=== PATIENT | female | born 1990 | race Caucasian/White ===

== ENCOUNTER 2019-02-09 21:30 | Emergency (ER) | payer MEDICAID ==
[2019-02-09 21:38] VITALS: BP 144/83
--- NOTE | 2019-02-09 22:01 | ED Physician Documentation ---
History of Present Illness - Stated complaint Stated Complaint: BK PX/TRUNK PX - Chief complaint Chief Complaint: Trauma Ch/Bk - Additonal information Additional information: This is a 28-year-old female with a history of previous lumbar compression fracture which was treated nonoperatively after a fall from horse, presents with back spasm. Patient was pushing a bin full of some heavy dog food today and when she stood up and turned she had pain in her lower back on the left side. She feels like the muscle of her upper gluteus and lower back are spasming. Pain is currently severe, worse with movement. She denies pain in the midline. She denies any numbness or tingling in her leg, no weakness. No bowel or bladder symptoms. Review of Systems Constitutional: denies: Fever Cardiac: denies: Chest pain / pressure GI: denies: Abdominal Pain Musculoskeletal: reports: Back pain PD PAST MEDICAL HISTORY - Past Medical History Musculoskeletal: Other (Lumbar compression fracture) - Past Surgical History Past Surgical History: No - Present Medications Home Medications: Ambulatory Orders Medication Instructions Recorded Confirmed Methocarbamol [Robaxin] 500 mg PO TID PRN #15 tablet 02/09/19 - Allergies Allergies/Adverse Reactions: Allergies Allergy/AdvReac Type Severity Reaction Status Date / Time ibuprofen Allergy Dizziness Verified 02/09/19 21:38 - Living Situation Living Situation: reports: With family - Social History Does the pt have substance abuse?: No - Family History Family history: reports: Non contributory PD ED PE NORMAL - Vitals Vital signs reviewed: Yes - General General: Alert and oriented X 3 - HEENT HEENT: PERRL - Cardiac Cardiac: RRR (Normal rate in 80s on my exam) - Respiratory Respiratory: Clear bilaterally - Abdomen Abdomen: Soft, Non distended - Back Back: Other (No deformity. No ecchymosis or skin changes. No midline tenderness in the TL or S spine. Patient has some tenderness in the left lower paraspinous muscle and left upper gluteal region. 5 out of 5 strength ankle dorsiflexion and plantarflexion. Sensation to light touch intact over the bilateral lower extremities) - Derm Derm: Warm and dry - Extremities Extremities: No deformity - Neuro Neuro: Alert and oriented X 3 - Psych Psych: Normal mood, Normal affect Results - Vitals Vitals: Vital Signs - 24 hr 02/09/19 21:35 Temperature 36.6 C Heart Rate 112 H Respiratory 18 Rate Blood Pressure 144/83 H O2 Saturation 100 Oxygen O2 Source Room air Procedures - General procedure General procedure: Trigger point injection: After discussing the risks of this procedure, patient verbally consented. The 3 areas of maximal tenderness were palpated, and cleaned with alcohol, and afterwards they were injected with 0.5 cc of lidocaine using a 27-gauge needle. Care was made to keep the needle superficial under the muscle, and the syringe was pulled back prior to injecting lidocaine to ensure it was not in the vessel. Patient felt a little bit lightheaded upon receiving the injections, she was laid down and she felt better within a minute or two. She otherwise tolerated the procedure well with no immediate complications. PD MEDICAL DECISION MAKING - ED course Complexity details: considered differential (Strain, sprain, fracture, sciatica, disc herniation, spinal cord compression) ED course: Patient presents with spasm and discomfort of her left lower paraspinous muscles and upper gluteal region after a twisting motion today. She is neurologically intact, has no midline tenderness, no impact to the back, no bowel or bladder symptoms, no red flags that would necessitate imaging at this time. Her pain is truly located in the muscles And she appears to have a strain with some back spasm. She was given trigger point injections, Tylenol, and Robaxin. Afterwards she felt somewhat improved, but upon getting up and walking she had increased pain, so she was given cyclobenzaprine. She had improvement with this medication. I reviewed return precautions, instructed her to follow-up with her primary care provider, and prescribed her a small number of Robaxin with instructions on its use. I also discussed typical supportive care for back pain. Patient agreed and was discharged home in the care of her mother. Departure - Departure Disposition: 01 Home, Self Care Clinical Impression: Back strain Qualifiers: Encounter type: initial encounter Qualified Code(s): S39.012A - Strain of muscle, fascia and tendon of lower back, initial encounter Condition: Good Instructions: ED Spasm Back No Trauma Follow-Up: He Dyer ARNP [Primary Care Provider] - Within 1 week (For follow up if having continued symptoms) Prescriptions: Methocarbamol [Robaxin] 500 mg PO TID PRN #15 tablet PRN Reason: Pain Comments: You were seen today for back pain. This appears to be a strain of your left back. Please take Tylenol, rest your back, ice or heat the area of discomfort, and avoid twisting, straining, or lifting until your back feels better. Please follow-up with your primary care provider unless your symptoms completely resolve. If you have any worsening, or other concerning symptoms such as numbness or weakness please return to the emergency department. Discharge Date/Time: 02/10/19 00:09
[2019-02-09] MEDS ORDERED: METHOCARBAMOL 500 MG TABLET PO STA (22:09)
[2019-02-09] MEDS ORDERED: ACETAMINOPHEN 325 MG TABLET PO STA (22:09)
[2019-02-09] MEDS ORDERED: LIDOCAINE 1% 2 ML VIAL SUBQ STA (22:10)
[2019-02-09] MEDS ORDERED: CYCLOBENZAPRINE 10 MG TABLET PO STA (23:53)
== END 2019-02-10 00:09 | disposition home or self-care (01) ==
LOC: ED 21:30
DX: S39.012A Strain of muscle, fascia and tendon of lower back, initial encounter (principal); X50.1XXA Overexertion from prolonged static or awkward postures, initial encounter; Y93.89 Activity, other specified; M62.830 Muscle spasm of back; Z87.81 Personal history of (healed) traumatic fracture
CPT/HCPCS: 20552; 99282; 99283; A9270

== ENCOUNTER 2019-07-05 19:27 | Emergency (ER) | payer MEDICAID ==
[2019-07-05] MEDS ORDERED: SODIUM CHLORIDE 0.9% 1,000 ML IV ONE (19:55)
[2019-07-05] MEDS ORDERED: BENZONATATE 100 MG CAPSULE PO STA (19:55)
--- NOTE | 2019-07-05 20:03 | ED Physician Documentation ---
PD HPI CHEST PAIN - Stated complaint Stated Complaint: COUGH/CP/SOA - Chief complaint Chief Complaint: Resp - History obtained from History obtained from: Patient - History of Present Illness Timing - onset: Other (About 12 days ago became sick with cough, runny nose, body aches, fevers and chills. She had been exposed to the influenza virus and presumed that was what it was. She was slowly getting better but over the last 3 days has developed sharp left-sided chest pain that hurts worse with cough and deep breathing. She is coughing up a clear to white mucus. She denies shortness of breath. No fevers now. No pedal edema or calf pain.) Review of Systems Constitutional: reports: Fatigue. denies: Fever, Chills Nose: reports: Rhinorrhea / runny nose Throat: denies: Sore throat Cardiac: reports: Chest pain / pressure. denies: Palpitations, Pedal edema, Calf pain Respiratory: reports: Cough. denies: Dyspnea, Hemoptysis, Wheezing PD PAST MEDICAL HISTORY - Past Medical History Past Medical History: Yes Musculoskeletal: Other Other Past Medical History: Compound FX L4 & L5, & cocyx from horseback riding fall. - Past Surgical History Past Surgical History: No - Present Medications Home Medications: Ambulatory Orders Medication Instructions Recorded Confirmed Benzonatate [Tessalon Perle] 100 - 200 mg PO TID PRN #30 capsule 07/05/19 guaiFENesin/CODEINE [Robitussin AC] 5 - 10 ml PO Q6H PRN #120 ml 07/05/19 - Allergies Allergies/Adverse Reactions: Allergies Allergy/AdvReac Type Severity Reaction Status Date / Time ibuprofen Allergy Dizziness Verified 07/05/19 19:31 - Social History Does the pt smoke?: No Smoking Status: Never smoker Does the pt drink ETOH?: Yes Does the pt have substance abuse?: No - Immunizations Immunizations are current?: Yes - POLST Patient has POLST: No PD ED PE NORMAL - Vitals Vital signs reviewed: Yes - General General: Alert and oriented X 3, No acute distress, Other (On my examination her heart rate is closer to 1 10-1 20) - HEENT HEENT: PERRL, EOMI, Ears normal, Pharynx benign - Neck Neck: Supple, no meningeal sign, No bony TTP - Cardiac Cardiac: RRR, No murmur - Respiratory Respiratory: No respiratory distress, Clear bilaterally - Abdomen Abdomen: Non tender - Back Back: No CVA TTP, No spinal TTP - Derm Derm: Normal color, Warm and dry - Extremities Extremities: No edema, No calf tenderness / cord - Neuro Neuro: Alert and oriented X 3, Normal speech Results - Vitals Vitals: Vital Signs - 24 hr 07/05/19 07/05/19 07/05/19 19:31 20:17 21:18 Temperature 36.5 C 36.8 C Heart Rate 87 79 88 Respiratory 16 18 16 Rate Blood Pressure 140/90 H 122/80 129/92 H O2 Saturation 100 100 100 Oxygen O2 Source Room air - EKG (time done) 1941 Rate: Rate (enter#) (98) Rhythm: NSR [place]: Normal Intervals: Normal [place] QRS: Normal Ischemia: Non specific changes Computer interpretation: Agree with computer - Labs Labs: Laboratory Tests 07/05/19 07/05/19 07/05/19 20:14 20:14 20:14 WBC 8.7 RBC 4.75 Hgb 14.2 Hct 41.8 MCV 88.0 MCH 29.9 MCHC 34.0 RDW 11.6 L Plt Count 375 MPV 8.8 Neut # (Auto) 3.5 Lymph # (Auto) 3.9 H [place] # (Auto) 1.3 H Eos # (Auto) 0.0 Baso # (Auto) 0.0 Absolute Nucleated RBC 0.00 Nucleated RBC % 0.0 D-Dimer 369.4 H Sodium 140 Potassium 3.8 Chloride 108 Carbon Dioxide 25 Anion Gap 7.0 BUN 8 Creatinine 0.6 Estimated GFR (MDRD) 119 Glucose 98 Calcium 9.5 Total Bilirubin 0.9 AST 19 ALT 17 Alkaline Phosphatase 56 Total Protein 7.6 Albumin 4.4 Globulin 3.2 Albumin/Globulin Ratio 1.4 Lipase 57 H - Rads (name of study) 2v CXR Radiology: EMP read contemporaneously (normal) CTA chest Radiology: EMP read contemporaneously (Normal) PD MEDICAL DECISION MAKING - ED course ED course: 29-year-old woman with a flulike illness preceding a bad cough and now left- sided chest pain. She was tachycardic and d-dimer was done with positive results necessitating CT angiography of the chest which was negative. There is no evidence of pneumonia. Lab work was unremarkable. Feeling better after Tessalon and IV fluids. Departure - Departure Disposition: 01 Home, Self Care Clinical Impression: Chest pain Qualifiers: Chest pain type: pleurodynia Qualified Code(s): R07.81 - Pleurodynia Upper respiratory tract infection Qualifiers: URI type: unspecified URI Qualified Code(s): J06.9 - Acute upper respiratory infection, unspecified Condition: Good Record reviewed to determine appropriate education?: Yes Instructions: ED Chest Pain NonCardiac Prescriptions: Benzonatate [Tessalon Perle] 100 - 200 mg PO TID PRN #30 capsule PRN Reason: Cough guaiFENesin/CODEINE [Robitussin AC] 5 - 10 ml PO Q6H PRN #120 ml PRN Reason: Cough Comments: Call your doctor to arrange a follow-up appointment, make the next available appointment. In the interim, return anytime if worse or if new symptoms develop.
[2019-07-05 20:19] LABS: BASOPHILS % (AUTO) 0.3 %; EOSINOPHILS % (AUTO) 0.5 %; HGB - HEMOGLOBIN 14.2 g/dL (12.0-16.0); LYMPHOCYTES # (AUTO) 3.9 10^3/uL (1.5-3.5); LYMPHOCYTES % (AUTO) 44.2 %; MEAN CORPUSCULAR HEMOGLOBIN 29.9 pg (27.0-31.0); MEAN PLATELET VOLUME 8.8 fL (7.9-10.8); MONOCYTES # (AUTO) 1.3 10^3/uL (0.0-1.0); MONOCYTES % (AUTO) 14.3 %; NEUTROPHILS # (AUTO) 3.5 10^3/uL (1.5-6.6); PLT - PLATELET COUNT 375 10^3/uL (130-450); RED BLOOD COUNT 4.75 10^6/uL (4.20-5.40); RED CELL DISTRIBUTION WIDTH 11.6 % (12.0-15.0); WHITE BLOOD COUNT 8.7 x10^3/uL (4.8-10.8)
--- NOTE | 2019-07-05 20:24 | XRAY Report ---
Reason: cough chest pain Procedure Date: 07/05/2019 Accession Number: [id number] / [id number] Procedure: XR - Chest 2 View X-Ray CPT Code: 05048 Final Report FULL RESULT: EXAM: CHEST RADIOGRAPHY EXAM DATE: 07/05/2019 08:12 PM. CLINICAL HISTORY: Cough chest pain. COMPARISON: None. TECHNIQUE: 2 views. FINDINGS: Lungs/Pleura: No focal opacities evident. No pleural effusion. No pneumothorax. Normal volumes. Mediastinum: Heart and mediastinal contours are unremarkable. Other: None. IMPRESSION: Normal 2-view chest radiography. [facility]
[2019-07-05 20:33] LABS: ALBUMIN 4.4 g/dL (3.2-5.5); ALBUMIN/GLOBULIN RATIO 1.4 (1.0-2.2); BILIRUBIN,TOTAL 0.9 mg/dL (0.2-1.0); CALCIUM 9.5 mg/dL (8.5-10.3); CREATININE 0.6 mg/dL (0.4-1.0); TOTAL PROTEIN 7.6 g/dL (6.7-8.2)
[2019-07-05] MEDS ORDERED: IOVERSOL 320 100 ML VIAL IVP ONE ×2 (20:41→21:07)
--- NOTE | 2019-07-05 21:37 | CT Report ---
Reason: chest pain, high dimer Procedure Date: 07/05/2019 Accession Number: [id number] / [id number] Procedure: CT - ANGIO CHEST W/WO CPT Code: Final Report FULL RESULT: EXAM: CT ANGIOGRAM CHEST EXAM DATE: 07/05/2019 09:05 PM. CLINICAL HISTORY: Left chest pain. High d dimer. COMPARISON: None. TECHNIQUE: Routine helical imaging was performed through the chest in the pulmonary arterial phase. IV Contrast: 80 cc of Optiray 320. Reconstructions: Coronal 3-D MIP reconstructions.Sagittal and coronal. In accordance with CT protocol optimization, one or more of the following dose reduction techniques were utilized for this exam: automated exposure control, adjustment of mA and/or KV based on patient size, or use of iterative reconstructive technique. FINDINGS: Pulmonary Arteries: Diagnostic quality: Adequate through the segmental arteries. No evidence for acute or chronic pulmonary emboli. RV/LV is within normal limits. There is no interventricular septal bowing. There is no reflux of contrast material in the IVC. Lungs/Pleura: No consolidation, nodules, or edema. No effusions or pneumothorax. Mediastinum: Normal. No cardiac enlargement or adenopathy. Thoracic Aorta: Unremarkable. Upper Abdomen: Unremarkable. Other: None. IMPRESSION: Normal pulmonary CT angiogram. No pulmonary emboli. RADIA
[2019-07-05 21:49] VITALS: BP 125/80
== END 2019-07-05 21:49 | disposition home or self-care (01) ==
LOC: ED 19:27
DX: J06.9 Acute upper respiratory infection, unspecified (principal); R07.81 Pleurodynia; R00.0 Tachycardia, unspecified; R79.89 Other specified abnormal findings of blood chemistry
CPT/HCPCS: 36415; 71046; 71275; 80053; 83690; 85025; 85379; 93005; 96360; 96361; 99284; A9270; Q9967

== ENCOUNTER 2021-05-08 17:42 | Emergency (ER) | payer MEDICAID ==
--- NOTE | 2021-05-08 19:38 | ED Physician Documentation ---
History of Present Illness - Stated complaint Stated Complaint: LT/RT SWOLLEN TOES - Chief complaint Chief Complaint: Ext Problem - Additonal information Additional information: 30-year-old female is brought to the emergency department for evaluation of swelling in her toes only left greater than right. This was noted this morning when she woke up. No history of travel. No hormone use. No swelling beyond the toes. No calf pain. No previous history of blood clots or cancer. Mom reports that in the past she has had an elevated D-dimer. 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 Review of Systems Constitutional: denies: Fever, Chills Eyes: reports: Reviewed and negative Ears: reports: Reviewed and negative Nose: reports: Reviewed and negative Throat: reports: Reviewed and negative Cardiac: reports: Other (Reported swelling in bilateral toes though not appreciated on my exam.). denies: Chest pain / pressure, Palpitations, Pedal edema PD PAST MEDICAL HISTORY - Past Medical History Past Medical History: Yes : None Musculoskeletal: Other Other Past Medical History: raynauds syndrome - Past Surgical History Past Surgical History: No - Present Medications Home Medications: Ambulatory Orders Medication Instructions Recorded Confirmed Benzonatate [Tessalon Perle] 100 - 200 mg PO TID PRN #30 capsule 07/05/19 guaiFENesin/CODEINE [Robitussin AC] 5 - 10 ml PO Q6H PRN #120 ml 07/05/19 - Allergies Allergies/Adverse Reactions: Allergies Allergy/AdvReac Type Severity Reaction Status Date / Time ibuprofen Allergy Dizziness Verified 05/08/21 17:45 - Social History Does the pt smoke?: No Smoking Status: Never smoker Does the pt drink ETOH?: Yes Does the pt have substance abuse?: No - Immunizations Immunizations are current?: Yes - POLST Patient has POLST: No PD ED PE EXPANDED - General General: Alert, No acute distress - Cardiac Cardiac: Regular Rate, Radial strong equal, Pedal strong equal, Cap refill < 2 sec. No: Murmur Present - Respiratory Respiratory: Clear to ausultation he. No: Distress - Abdomen Abdomen: Normal Bowel sounds. No: Tender to palpation - Extremities Extremities: Right toe(s) (2+ DP pulse. Brisk cap refill. No swelling appreciated.), Left toe(s) (2+ DP pulse. Brisk cap refill. No swelling appreciated.) Results - Vitals Vitals: Vital Signs - 24 hr 05/08/21 17:45 Temperature 36.5 C Heart Rate 100 Respiratory 16 Rate Blood Pressure 148/81 H O2 Saturation 100 Oxygen O2 Source Room air - Labs Labs: Laboratory Tests 05/08/21 05/08/21 19:45 19:45 WBC 7.5 RBC 5.08 Hgb 15.2 Hct 45.4 MCV 89.4 MCH 29.9 MCHC 33.5 RDW 11.9 L Plt Count 266 MPV 8.9 Neut # (Auto) 4.1 Lymph # (Auto) 2.4 [place] # (Auto) 0.9 Eos # (Auto) 0.0 Baso # (Auto) 0.0 Absolute Nucleated RBC 0.00 Nucleated RBC % 0.0 Sodium 141 Potassium 3.7 Chloride 106 Carbon Dioxide 21 Anion Gap 14.0 H BUN 9 Creatinine 0.7 Estimated GFR (MDRD) 99 Glucose 96 Calcium 10.2 Total Bilirubin 0.6 AST 26 ALT 21 Alkaline Phosphatase 69 Total Protein 8.4 H Albumin 5.2 Globulin 3.2 Albumin/Globulin Ratio 1.6 Lipase 59 H - Rads (name of study) US DVT Radiology: Final report received (No deep vein thrombosis seen in bilateral lower extremities.) PD MEDICAL DECISION MAKING - ED course Complexity details: reviewed results, re-evaluated patient, d/w patient ED course: 30-year-old female presents emergency department for evaluation of acute bilateral toe swelling in both of her feet. She endorses some pain but no itch. No fevers. This did occur after she was working with hay and open toed shoes and found that her feet got matted with hay. Screening labs show no anemia LFT or kidney abnormalities. Though she is low risk by Wells criteria for a DVT bilateral ultrasound imaging was done that again confirms no deep vein thrombosis. Clinically patient does not have signs of tinea infection or cellulitis. In fact clinically her toes do not appear swollen to this provider though patient and her mother are quite insistent that they are swollen. I have encouraged the patient to use Benadryl in case this is a histamine reaction related to the hay and elevate her legs at night. Continue close follow-up with PCP. Departure - Departure Disposition: 01 Home, Self Care Clinical Impression: Localized swelling of toe of both feet Condition: Stable Record reviewed to determine appropriate education?: Yes Follow-Up: [facility] [Provider Group] Comments: Maite were seen today in the emergency department for concerns of swelling in both your toes. Your screening labs including your blood count and serum chemistry are essentially normal. We did do an ultrasound of both your legs and no blood clot is seen. As we discussed at the bedside it does not look like a fungal infection nor does it look like a bacterial skin infection. I do encourage you to attempt to use the Benadryl in case this is related to exposure to the hay while wearing open toed clogs. You may also benefit from elevating your legs over the level of your heart tonight when sleeping. Please continue close follow-up with your primary care provider. [facility] in [place] on [facility] is accepting new patients.
[2021-05-08 19:52] LABS: BASOPHILS % (AUTO) 0.5 %; EOSINOPHILS % (AUTO) 0.3 %; HCT - HEMATOCRIT 45.4 % (37.0-47.0); HGB - HEMOGLOBIN 15.2 g/dL (12.0-16.0); LYMPHOCYTES # (AUTO) 2.4 10^3/uL (1.5-3.5); LYMPHOCYTES % (AUTO) 32.4 %; MEAN CORPUSCULAR HEMOGLOBIN 29.9 pg (27.0-31.0); MEAN CORPUSCULAR HGB CONC 33.5 g/dL (32.0-36.0); MEAN CORPUSCULAR VOLUME 89.4 fL (81.0-99.0); MEAN PLATELET VOLUME 8.9 fL (7.9-10.8); MONOCYTES # (AUTO) 0.9 10^3/uL (0.0-1.0); NEUTROPHILS # (AUTO) 4.1 10^3/uL (1.5-6.6); NEUTROPHILS % (AUTO) 54.4 %; PLT - PLATELET COUNT 266 10^3/uL (130-450); RED BLOOD COUNT 5.08 10^6/uL (4.20-5.40); RED CELL DISTRIBUTION WIDTH 11.9 % (12.0-15.0); WHITE BLOOD COUNT 7.5 x10^3/uL (4.8-10.8)
[2021-05-08 20:05] LABS: ALBUMIN 5.2 g/dL (3.2-5.5); ALBUMIN/GLOBULIN RATIO 1.6 (1.0-2.2); BILIRUBIN,TOTAL 0.6 mg/dL (0.2-1.0); CALCIUM 10.2 mg/dL (8.5-10.3); CREATININE 0.7 mg/dL (0.4-1.0); POTASSIUM 3.7 mmol/L (3.5-5.0); TOTAL PROTEIN 8.4 g/dL (6.7-8.2)
--- NOTE | 2021-05-08 21:44 | Ultrasound Report ---
PROCEDURE: Duplex Ext Veins Bilateral INDICATIONS: Virgie Weller TECHNIQUE: Real-time imaging, as well as color and pulse Doppler interrogation, were performed of the deep veins of both legs from the inguinal ligament to the popliteal fossa. COMPARISON: None. FINDINGS: The deep veins are normally compressible, and free of intraluminal thrombus. Color and pu lse Doppler demonstrate normal phasic intravascular flow. There is normal augmentation response to d istal compression maneuver. IMPRESSION: No evidence of deep venous thrombosis. Reviewed by: Shahzad Lamas MD on 05/08/2021 9:43 PM PST Approved by: Shahzad Laams MD on 05/08/2021 9:43 PM PST Station ID: [id number]
[2021-05-08 22:12] VITALS: BP 136/82
== END 2021-05-08 22:05 | disposition home or self-care (01) ==
LOC: ED 17:42
DX: R22.43 Localized swelling, mass and lump, lower limb, bilateral (principal); M79.675 Pain in left toe(s); M79.674 Pain in right toe(s); I73.00 Raynaud's syndrome without gangrene
CPT/HCPCS: 36415; 80053; 83690; 85025; 93970; 99282; 99284